=== PATIENT | female | born 1950 | race Caucasian/White ===

== ENCOUNTER 2019-01-06 22:52 | Emergency (ER) | payer MEDICARE ==
--- NOTE | 2019-01-06 22:54 | ED ---
Psych HPI - General Stated Complaint: Mental Health Time Seen by Provider: 01/06/19 22:53 Source: RN notes reviewed, old records reviewed - History of Present Illness Initial Comments: This is a 60-year-old female presented for psychiatric evaluation. Overdose. Patient did take 8.5 mg Xanax tabs as well as her daily psychiatric medications antidepressant. Patient denies other illicit drugs or alcohol. Patient states she took these to [facility] event today she states she's having a very very hard. This is a 4 year anniversary of her does, both her both diagnosis cancer her did pass away she has been living without him. EMS and PD were called by patient's family who found patient on the ground MD Complaint: suicidal ideation, feels depressed -: days(s) Associated Psychiatric Symptoms: depression, suicidal ideation History of same: Yes Quality: constant Improves With: none Worsens With: none Context: recent drug abuse, significant life stressor Treatments Prior to Arrival: placed on mental health hold If Self Harm: admits thoughts of self harm, has acted on plan - Related Data Home Medications Medication Instructions Recorded Confirmed ALPRAZolam [Xanax] 0.5 mg PO DAILY PRN 07/19/17 01/06/19 Anastrozole [Arimidex] 1 mg PO HS 07/19/17 01/06/19 Meloxicam [Mobic] 15 mg PO HS 07/19/17 01/06/19 Omeprazole 20 mg PO HS 07/19/17 01/06/19 Allergies Allergy/AdvReac Type Severity Reaction Status Date / Time No Known Allergies Allergy Verified 01/06/19 23:37 Review of Systems ROS Statement: Those systems with pertinent positive or pertinent negative responses have been documented in the HPI. ROS Other: All systems not noted in ROS Statement are negative. Past Medical History Past Medical History: Cancer History of Any Multi-Drug Resistant Organisms: None Reported Past Surgical History: Breast Surgery, Orthopedic Surgery Past Psychological History: Anxiety, Depression Smoking Status: Current every day smoker Past Alcohol Use History: None Reported Past Drug Use History: None Reported General Exam General appearance: alert, anxious, in distress Head exam: Present: atraumatic, normocephalic, normal inspection Eye exam: Present: normal appearance, PERRL, EOMI. Absent: scleral icterus, conjunctival injection, periorbital swelling ENT exam: Present: normal exam, mucous membranes moist Neck exam: Present: normal inspection. Absent: tenderness, meningismus, lymphadenopathy Respiratory exam: Present: normal lung sounds bilaterally. Absent: respiratory distress, wheezes, rales, rhonchi, stridor Cardiovascular Exam: Present: regular rate, normal rhythm, normal heart sounds. Absent: systolic murmur, diastolic murmur, rubs, gallop, clicks GI/Abdominal exam: Present: soft, normal bowel sounds. Absent: distended, tenderness, guarding, rebound, rigid Extremities exam: Present: normal inspection, full ROM, normal capillary refill. Absent: tenderness, pedal edema, joint swelling, calf tenderness Back exam: Present: normal inspection Neurological exam: Present: alert, oriented X3, CN II-XII intact Psychiatric exam: Present: normal mood, depressed Skin exam: Present: warm, dry, intact, normal color. Absent: rash Course Vital Signs 01/06/19 01/07/19 01/07/19 23:01 01:06 03:07 Pulse Rate 95 83 89 Respiratory 18 20 20 Rate Blood Pressure 143/84 178/82 149/73 O2 Sat by Pulse 95 97 95 Oximetry - Reevaluation(s) Reevaluation #1: 01/06/19 23:28 Medical record is reviewed Reevaluation #2: 01/06/19 23:28 Patient depressed and tearful Reevaluation #3: 01/06/19 23:28 Medical clear for psychiatric evaluation Medical Decision Making - Medical Decision Making 68 female seen and evaluated with psychiatry, patient deemed stable for [facility]. - Lab Data Result diagrams: 01/06/19 23:26 01/06/19 23:26 Lab Results 01/06/19 01/06/19 01/06/19 Range/Units 23:26 23:26 23:26 WBC 7.0 (3.8-10.6) k/uL RBC 4.40 (3.80-5.40) m/uL Hgb 13.3 (11.4-16.0) gm/dL Hct 39.5 (34.0-46.0) % MCV 89.9 (80.0-100.0) fL MCH 30.1 (25.0-35.0) pg MCHC 33.5 (31.0-37.0) g/dL RDW 13.0 (11.5-15.5) % Plt Count 272 (150-450) k/uL Neutrophils % 47 % Lymphocytes % 43 % Monocytes % 6 % Eosinophils % 1 % Basophils % 1 % Neutrophils # 3.3 (1.3-7.7) k/uL Lymphocytes # 3.0 (1.0-4.8) k/uL Monocytes # 0.4 (0-1.0) k/uL Eosinophils # 0.1 (0-0.7) k/uL Basophils # 0.0 (0-0.2) k/uL Sodium 139 (137-145) mmol/L Potassium 4.4 (3.5-5.1) mmol/L Chloride 107 (98-107) mmol/L Carbon Dioxide 26 (22-30) mmol/L Anion Gap 6 mmol/L BUN 15 (7-17) mg/dL Creatinine 0.71 (0.52-1.04) mg/dL Est GFR (CKD-EPI)AfAm >90 (>60 ml/min/1.73 sqM) Est GFR (CKD-EPI)NonAf 88 (>60 ml/min/1.73 sqM) Glucose 175 H (74-99) mg/dL Calcium 9.4 (8.4-10.2) mg/dL TSH 3.010 (0.465-4.680) mIU/L Urine Color Urine Appearance (Clear) Urine pH (5.0-8.0) Ur Specific [place] (1.001-1.035) Urine Protein (Negative) Urine Glucose (UA) (Negative) Urine Ketones (Negative) Urine Blood (Negative) Urine Nitrite (Negative) Urine Bilirubin (Negative) Urine Urobilinogen (<2.0) mg/dL Ur Leukocyte Esterase (Negative) Urine RBC (0-5) /hpf Urine WBC (0-5) /hpf Ur Squamous Epith Cells (0-4) /hpf Urine Bacteria (None) /hpf Urine Mucus (None) /hpf Salicylates <1.0 mg/dL Urine Opiates Screen (NotDetected) Ur Oxycodone Screen (NotDetected) Urine Methadone Screen (NotDetected) Ur Propoxyphene Screen (NotDetected) Acetaminophen <10.0 ug/mL Ur Barbiturates Screen (NotDetected) U Tricyclic Antidepress (NotDetected) Ur Phencyclidine Scrn (NotDetected) Ur Amphetamines Screen (NotDetected) U Methamphetamines Scrn (NotDetected) U Benzodiazepines Scrn (NotDetected) Urine Cocaine Screen (NotDetected) U Marijuana (THC) Screen (NotDetected) Serum Alcohol <10 mg/dL 01/07/19 Range/Units 03:08 WBC (3.8-10.6) k/uL RBC (3.80-5.40) m/uL Hgb (11.4-16.0) gm/dL Hct (34.0-46.0) % MCV (80.0-100.0) fL MCH (25.0-35.0) pg MCHC (31.0-37.0) g/dL RDW (11.5-15.5) % Plt Count (150-450) k/uL Neutrophils % % Lymphocytes % % Monocytes % % Eosinophils % % Basophils % % Neutrophils # (1.3-7.7) k/uL Lymphocytes # (1.0-4.8) k/uL Monocytes # (0-1.0) k/uL Eosinophils # (0-0.7) k/uL Basophils # (0-0.2) k/uL Sodium (137-145) mmol/L Potassium (3.5-5.1) mmol/L Chloride (98-107) mmol/L Carbon Dioxide (22-30) mmol/L Anion Gap mmol/L BUN (7-17) mg/dL Creatinine (0.52-1.04) mg/dL Est GFR (CKD-EPI)AfAm (>60 ml/min/1.73 sqM) Est GFR (CKD-EPI)NonAf (>60 ml/min/1.73 sqM) Glucose (74-99) mg/dL Calcium (8.4-10.2) mg/dL TSH (0.465-4.680) mIU/L Urine Color Yellow Urine Appearance Clear (Clear) Urine pH 6.5 (5.0-8.0) Ur Specific [place] 1.011 (1.001-1.035) Urine Protein Negative (Negative) Urine Glucose (UA) Trace H (Negative) Urine Ketones Negative (Negative) Urine Blood Negative (Negative) Urine Nitrite Negative (Negative) Urine Bilirubin Negative (Negative) Urine Urobilinogen <2.0 (<2.0) mg/dL Ur Leukocyte Esterase Large H (Negative) Urine RBC 1 (0-5) /hpf Urine WBC 9 H (0-5) /hpf Ur Squamous Epith Cells 1 (0-4) /hpf Urine Bacteria Rare H (None) /hpf Urine Mucus Rare H (None) /hpf Salicylates mg/dL Urine Opiates Screen Not Detected (NotDetected) Ur Oxycodone Screen Not Detected (NotDetected) Urine Methadone Screen Not Detected (NotDetected) Ur Propoxyphene Screen Not Detected (NotDetected) Acetaminophen ug/mL Ur Barbiturates Screen Not Detected (NotDetected) U Tricyclic Antidepress Not Detected (NotDetected) Ur Phencyclidine Scrn Not Detected (NotDetected) Ur Amphetamines Screen Not Detected (NotDetected) U Methamphetamines Scrn Not Detected (NotDetected) U Benzodiazepines Scrn Detected H (NotDetected) Urine Cocaine Screen Not Detected (NotDetected) U Marijuana (THC) Screen Detected H (NotDetected) Serum Alcohol mg/dL Disposition Clinical Impression: Depression, Adjustment disorder Disposition: HOME SELF-CARE Condition: Fair Is patient prescribed a controlled substance at d/c from ED?: No Referrals: Tomy Christian MD [Primary Care Provider] - 1-2 days
[2019-01-06 23:33] LABS: Basophils % (A) 1 %; Eosinophils # (A) 0.1 k/uL (0-0.7); Eosinophils % (A) 1 %; HCT 39.5 % (34.0-46.0); HGB 13.3 gm/dL (11.4-16.0); Lymphocytes % (A) 43 %; MCH 30.1 pg (25.0-35.0); MCHC 33.5 g/dL (31.0-37.0); MCV 89.9 fL (80.0-100.0); Mean Platelet Volume 7.4; Monocytes # (A) 0.4 k/uL (0-1.0); Monocytes % (A) 6 %; Neutrophils # (A) 3.3 k/uL (1.3-7.7); Neutrophils % (A) 47 %; Platelet Count 272 k/uL (150-450)
[2019-01-06 23:44] LABS: Acetaminophen <10.0 ug/mL; African American GFR (CKD) >90 (>60 ml/min/1.73 sqM); Alcohol <10 mg/dL; Anion Gap 6 mmol/L; Blood Urea Nitrogen 15 mg/dL (7-17); Calcium 9.4 mg/dL (8.4-10.2); Carbon Dioxide 26 mmol/L (22-30); Chloride 107 mmol/L (98-107); Glucose 175 mg/dL (74-99); Salicylate <1.0 mg/dL; Sodium 139 mmol/L (137-145)
[2019-01-06 23:45] LABS: Potassium 4.4 mmol/L (3.5-5.1)
[2019-01-07 01:08] VITALS: RESP 20
[2019-01-07 03:08] VITALS: BP 149/73; PULSE 89
[2019-01-07 03:35] LABS: Appearance,Urine Clear (Clear); Bacteria,Urine Rare /hpf; Bilirubin,Urine Negative (Negative); Blood,Urine Negative (Negative); Color,Urine Yellow; Glucose,Urine (UA) Trace (Negative); Ketones,Urine Negative (Negative); Leukocyte Esterase,Urine Large (Negative); Mucus,Urine Rare /hpf; Nitrite,Urine Negative (Negative); PH, Urine 6.5 (5.0-8.0); Protein,Urine Negative (Negative); RBC,Urine 1 /hpf (0-5); Specific Gravity,Urine 1.011 (1.001-1.035); Squamous Epithelial Cell,Urine 1 /hpf (0-4); Urobilinogen,Urine <2.0 mg/dL (<2.0); WBC,Urine 9 /hpf (0-5)
[2019-01-07 03:39] LABS: Amphetamine Screen,Urine Not Detected (NotDetected); Barbiturate Screen,Urine Not Detected (NotDetected); Benzodiazepines Screen,Urine Detected (NotDetected); Cocaine Screen,Urine Not Detected (NotDetected); Methadone Screen, Urine Not Detected (NotDetected); Opiate Screen,Urine Not Detected (NotDetected); Oxycodone Screen, Urine Not Detected (NotDetected); Phencyclidine Screen,Urine Not Detected (NotDetected); Tricyclic Antidepressant,Urine Not Detected (NotDetected); Urn Cannabinoid Scrn Detected (NotDetected)
--- NOTE | 2019-01-09 05:21 | CDI ---
Documentation Clarification OP Dear Barrett CLARK, DO Please provide clinical impression. 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
== END 2019-01-07 05:21 | disposition home or self-care (01) ==
LOC: EC 22:52
DX: F43.21 Adjustment disorder with depressed mood (principal); F17.200 Nicotine dependence, unspecified, uncomplicated; Z85.9 Personal history of malignant neoplasm, unspecified; Z79.1 Long term (current) use of non-steroidal anti-inflammatories (NSAID); Z79.899 Other long term (current) drug therapy
CPT/HCPCS: 99285 ×2; 82075; 99284; 36415; 80048; 84443; 85025; 81001; 80306; 83520; G0480 ×2; 80320; 80329

== ENCOUNTER 2019-01-07 09:52 | Emergency (ER) | payer MEDICARE ==
[2019-01-07 10:15] VITALS: RESP 18
--- NOTE | 2019-01-07 11:17 | ED ---
Psych HPI - General Chief Complaint: Psychiatric Symptoms Stated Complaint: Mental Health Time Seen by Provider: 01/07/19 10:30 Source: patient, EMS, RN notes reviewed, old records reviewed Mode of arrival: EMS - History of Present Illness Initial Comments: This is a 68-year-old female who was initially transferred to another psychiatric facility for inpatient care who was refused admission due to the original physician certain that accompanying the patient who is back now for reevaluation by EMS. She was initially transferred due to depression and her 4 years ago yesterday and she was feeling depressed she states she just wanted to get through the day and sleep she took some additional sleeping medication she states with no intention of hurting herself. She was brought in here initially and evaluated thought to be wrist herself. In the interim the patient has been reevaluated she currently is feeling much improved she initially had no intent of hurting herself either by accident or on purpose she states she is to go home with family members and she will follow-up. She was evaluated by psychiatric service in the emergency department. She also was noted have elevated blood pressure she states she always runs low but higher but is not on any medication currently she has no symptoms at this time. MD Complaint: feels depressed - Related Data Home Medications Medication Instructions Recorded Confirmed ALPRAZolam [Xanax] 0.5 mg PO DAILY PRN 07/19/17 01/06/19 Anastrozole [Arimidex] 1 mg PO HS 07/19/17 01/06/19 Meloxicam [Mobic] 15 mg PO HS 07/19/17 01/06/19 Omeprazole 20 mg PO HS 07/19/17 01/06/19 Allergies Allergy/AdvReac Type Severity Reaction Status Date / Time No Known Allergies Allergy Verified 01/06/19 23:37 Review of Systems ROS Statement: Those systems with pertinent positive or pertinent negative responses have been documented in the HPI. ROS Other: All systems not noted in ROS Statement are negative. Past Medical History Past Medical History: Cancer History of Any Multi-Drug Resistant Organisms: None Reported Past Surgical History: Breast Surgery, Orthopedic Surgery Additional Past Surgical History / Comment(s): Bilat masectomy Past Psychological History: Anxiety, Depression Smoking Status: Current every day smoker Past Alcohol Use History: None Reported Past Drug Use History: None Reported, Marijuana General Exam - General Exam Comments Initial Comments: This is a well-developed well-nourished awake alert oriented 3 female Limitations: no limitations General appearance: alert, in no apparent distress Head exam: Present: atraumatic, normocephalic, normal inspection Eye exam: Present: normal appearance, PERRL, EOMI. Absent: scleral icterus, conjunctival injection, periorbital swelling ENT exam: Present: mucous membranes dry Neck exam: Present: normal inspection, full ROM, other (No JVD). Absent: tenderness, meningismus, lymphadenopathy Respiratory exam: Present: normal lung sounds bilaterally. Absent: respiratory distress, wheezes, rales, rhonchi, stridor Cardiovascular Exam: Present: regular rate, normal rhythm, normal heart sounds. Absent: systolic murmur, diastolic murmur, rubs, gallop, clicks GI/Abdominal exam: Absent: distended, tenderness, guarding, rebound, rigid Extremities exam: Present: normal inspection, full ROM, normal capillary refill. Absent: tenderness, pedal edema, joint swelling, calf tenderness Back exam: Present: normal inspection Neurological exam: Present: alert, oriented X3, CN II-XII intact Psychiatric exam: Present: normal affect, normal mood Skin exam: Present: warm, dry, intact, normal color. Absent: rash Course Vital Signs 01/07/19 01/07/19 09:57 10:54 Temperature 97.6 F Pulse Rate 93 Respiratory 18 18 Rate Blood Pressure 188/106 O2 Sat by Pulse 97 Oximetry Medical Decision Making - Medical Decision Making I did review the charting from yesterday and after interview with the patient and the family member confirming patient will be discharged she is currently not wrist herself or anyone else he'll be discharged to follow-up with her doctor regarding her blood pressure and outpatient referrals. Disposition Clinical Impression: Depression, Adjustment disorder, Hypertension, Dehydration Disposition: HOME SELF-CARE Condition: Good Instructions (If sedation given, give patient instructions): Depression (DC), Anxiety (ED), Help Prevent Suicide (ED), Hypertension (ED) Is patient prescribed a controlled substance at d/c from ED?: No Referrals: Tomy Christian MD [Primary Care Provider] - 1-2 days
[2019-01-07 11:36] VITALS: BP 185/108; PULSE 87; TEMP 97.1
== END 2019-01-07 11:36 | disposition home or self-care (01) ==
LOC: EC 09:52
DX: F43.21 Adjustment disorder with depressed mood (principal); I10 Essential (primary) hypertension; E86.0 Dehydration; F17.200 Nicotine dependence, unspecified, uncomplicated; Z85.9 Personal history of malignant neoplasm, unspecified; Z79.1 Long term (current) use of non-steroidal anti-inflammatories (NSAID); Z79.899 Other long term (current) drug therapy
CPT/HCPCS: 99284

== ENCOUNTER 2019-09-26 12:29 | Emergency (ER) | payer MEDICARE, OTHER ==
[2019-09-26 12:39] VITALS: RESP 16; TEMP 97.8
[2019-09-26] MEDS ORDERED: HYDROcodone/APAP 7.5-325MG 1 EACH TAB PO ONE (13:19)
--- NOTE | 2019-09-26 13:34 | XR ---
EXAMINATION TYPE: XR chest 2V DATE OF EXAM: 09/26/2019 COMPARISON: NONE TECHNIQUE: PA and lateral views submitted. HISTORY: Pain FINDINGS: The lungs are clear and there is no pneumothorax, pleural effusion, or focal pneumonia. Surgical cl ips are seen in the axilla bilaterally. Heart size normal with no overt failure. Degenerative changes spine. IMPRESSION: 1. No acute process.
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
[2019-09-26 14:19] VITALS: BP 167/87; PULSE 82
== END 2019-09-26 14:19 | disposition home or self-care (01) ==
LOC: EC 12:29
DX: S20.219A Contusion of unspecified front wall of thorax, initial encounter (principal); C50.919 Malignant neoplasm of unspecified site of unspecified female breast; F17.200 Nicotine dependence, unspecified, uncomplicated; Z79.1 Long term (current) use of non-steroidal anti-inflammatories (NSAID); Z79.811 Long term (current) use of aromatase inhibitors; Z79.899 Other long term (current) drug therapy; Z87.39 Personal history of other diseases of the musculoskeletal system and connective tissue; Z98.890 Other specified postprocedural states; V49.40XA Driver injured in collision with unspecified motor vehicles in traffic accident, initial encounter; Y92.410 Unspecified street and highway as the place of occurrence of the external cause
CPT/HCPCS: 71046; 99284

== ENCOUNTER → 2021-01-13 | Outpatient (CLI) | payer MEDICARE, OTHER ==
--- NOTE | 2021-01-13 12:37 | CT ---
EXAMINATION TYPE: CT ChestAbdPelvis w con DATE OF EXAM: 01/13/2021 COMPARISON: None HISTORY: Breast cancer CT DLP: 622.50 mGycm CONTRAST: CT scan of the chest, abdomen and pelvis is performed with Oral Contrast and with IV Contrast, patien t injected with 80 mL of Isovue 300. CT Chest: LUNGS: The lungs are clear and free of infiltrate or atelectasis. No pulmonary nodule or mass is det ected. No pleural effusion or CT evidence of interstitial lung disease. MEDIASTINUM: Thoracic aorta is of normal caliber. The heart is not enlarged. N millimeter right par atracheal lymph node noted. No additional lymph nodes greater than 1 cm about the mediastinum or hank r regions. HILAR STRUCTURES: No evidence for mass. No hilar adenopathy is appreciated. OTHER: No significant abnormality. CONTRAST CT ABDOMEN AND PELVIS FINDINGS: LIVER/GB: No calcified gallstones. No space occupying hepatic lesion. Biliary tree is of normal ca liber. PANCREAS: No inflammation. No distinct mass. SPLEEN: No splenic enlargement. No lesion seen. ADRENALS: No nodule. No thickening. KIDNEYS/BLADDER: No hydronephrosis. No nephrolithiasis. Renal cystic changes seen. BOWEL: Normal appendix. Normal bowel caliber. No inflammation. GENITAL ORGANS: Hysterectomy changes noted. LYMPH NODES: No greater than 1cm abdominal or pelvic lymph nodes are appreciated. AORTA: No significant abnormality. OSSEOUS STRUCTURES: Severe degenerative change L5-S1 with endplate sclerosis and grade 2 anterolisthe sis of 1 cm of L5 on S1. OTHER: No significant additional abnormality is seen. IMPRESSION: 1. No CT evidence to suggest metastatic disease at this time.
--- NOTE | 2021-01-13 15:47 | NM ---
EXAMINATION TYPE: NM bone scan whole body DATE OF EXAM: 01/13/2021 COMPARISON: CT 01/13/2021 HISTORY: C50.919 Breast Ca Delayed whole-body scanning was performed following the injection of 22 mCi Tc 99m MDP. Images acqui red 3.5 hours post injection. Spot images obtained over the chest and abdomen FINDINGS: There is abnormal uptake within the sternum which likely corresponds to an expansile sclerotic focus seen on CT. Upper thoracic vertebral bodies show some sclerosis on CT and some associated increased r adio pharmaceutical uptake on bone scan. There is loss of disc spaces at the upper thoracic spine int ervertebral levels at T1-2, T2-3. Uptake along the costophrenic angles in the lower chest on the left likely corresponding to degenerative changes. Soft tissue uptake is normal. Uptake within the feet, hands, wrists, elbows, shoulders and sternoclavicular joints is likely degenerative. Uptake in the ma xilla and mandible likely due to periodontal disease. Relative photopenia noted the medial aspect of the right femoral condyle may be due to postop change, correlate for appropriate history. There is so me uptake also noted the lower lumbar spine and sacrum region possibly related to patient's spondylol ysis, listhesis L5-S1 and associated degenerative change. IMPRESSION: Cannot exclude underlying metastatic disease, consider thoracic MRI, correlate to exclude prior traum a to the sternum.
== END | disposition home or self-care (01) ==
LOC: RADNMMAIN 09:37
PROVIDERS: ATTEND Internal Medicine Hematology & Oncology
DX: C50.919 Malignant neoplasm of unspecified site of unspecified female breast (principal)
CPT/HCPCS: 82565; 84520; 71260; 74177; 36415; 78306; A9503; Q9967

== ENCOUNTER → 2021-01-22 | Outpatient (CLI) | payer MEDICARE, OTHER ==
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
== END | disposition home or self-care (01) ==
LOC: RADMRIMAIN 11:40
PROVIDERS: ATTEND Internal Medicine Hematology & Oncology
DX: M48.04 Spinal stenosis, thoracic region (principal); M47.814 Spondylosis without myelopathy or radiculopathy, thoracic region; Z85.3 Personal history of malignant neoplasm of breast
CPT/HCPCS: 72157; A9585